=== PATIENT | female | born 1960 | race Caucasian/White ===

== ENCOUNTER 2019-07-28 11:46 | Emergency (ER) | payer BC ==
[2019-07-28] MEDS ORDERED: HYDROCODONE/APAP 10/325 TAB ONE (12:32)
[2019-07-28] MEDS ORDERED: KETOROLAC 30 MG/ML INJ ONE (12:32)
--- NOTE | 2019-07-28 12:45 | ER ---
Nurse's Notes [facility] Name: Jovana Palm Age: 59 yrs Sex: Female : 1960 Arrival Date: 07/28/2019 Time: 11:49 Bed External Waiting Private MD: Diagnosis: Pain in left knee;Other internal derangements of left knee Presentation: 07/28 11:49 Presenting complaint: Patient states: my sciatic nerve starting hurting about a month tw2 ago, i went to [facility] , and they gave me meloxicam and its not helping, now my LEFT knee is hurting but it popped louder than hell when i went to get into the truck just a little bit ago. Transition of care: patient was not received from another setting of care. Onset of symptoms was July 28, 2019. Risk Assessment: Do you want to hurt yourself or someone else? Patient reports no desire to harm self or others. Initial Sepsis Screen: Does the patient meet any 2 criteria? No. Patient's initial sepsis screen is negative. Does the patient have a suspected source of infection? No. Patient's initial sepsis screen is negative. Care prior to arrival: None. 11:49 Method Of Arrival: Wheelchair tw2 11:49 Acuity: SETH 4 tw2 Triage Assessment: 11:51 General: Appears obese, well groomed, Behavior is calm, cooperative, appropriate for tw2 age. Pain: Complains of pain in left knee. Historical: - Allergies: 11:53 No Known Allergies; tw2 - Home Meds: 11:53 Atenolol Oral [Active]; lisinopril oral [Active]; tw2 - PMHx: 11:53 Hypertension; tw2 - Immunization history:: Adult Immunizations. - Social history:: Smoking status: . - Ebola Screening: : Patient denies travel to an Ebola-affected area in the 21 days before illness onset. - Family history:: not pertinent. Screenin:55 Abuse screen: Denies threats or abuse. Nutritional screening: No deficits noted. rb1 Tuberculosis screening: No symptoms or risk factors identified. Fall Risk No fall in past 12 months (0 pts). Secondary diagnosis (15 points) impaired mobility, No IV (0 pts). Ambulatory Aid- None/Bed Rest/Nurse Assist (0 pts). Gait- Impaired (20 pts.). Mental Status- Oriented to own ability (0 pts). Total Dash Fall Scale indicates Low Risk Score (25-44 pts). Fall prevention measures have been instituted. Side Rails Up X 2 Placed close to Nursing Station 1:1 attendant Assigned to Pt. Frequent Obs/Assesments occuring Family Present and informed to notify staff if they need to leave bedside As available Patient and Family Educated on Fall Prevention Program and strategies. Assessment: 11:55 General: Appears uncomfortable, Behavior is calm, cooperative. Pain: Complains of pain rb1 in left knee Pain currently is 9 out of 10 on a pain scale. Neuro: Level of Consciousness is awake, alert, obeys commands, Oriented to person, place, time, situation. Cardiovascular: Capillary refill < 3 seconds is brisk in bilateral fingers. Respiratory: Airway is patent Respiratory effort is even, unlabored, Respiratory pattern is regular, symmetrical. GI: No signs and/or symptoms were reported involving the gastrointestinal system. : No signs and/or symptoms were reported regarding the genitourinary system. Derm: Skin is pink, warm \T\ dry. Musculoskeletal: Reports pain in left knee Her knee popped when she was getting into the vehicle. 12:52 Reassessment: Patient appears in no apparent distress at this time. Patient and/or rb1 family updated on plan of care and expected duration. Pain level reassessed. Patient is alert, oriented x 3, equal unlabored respirations, skin warm/dry/pink. 12:56 Reassessment: Discharge pending, waiting for X-ray to be obtained. rb1 13:22 Reassessment: Patient appears in no apparent distress at this time. Patient and/or rb1 family updated on plan of care and expected duration. Pain level reassessed. Patient is alert, oriented x 3, equal unlabored respirations, skin warm/dry/pink. Patient states feeling better. 13:25 Reassessment: Discharge pending due to Dr. Vegas seeing X-ray results. rb1 Vital Signs: 11:51 BP 131 / 87; Pulse 87; Resp 17; Temp 97.8(TE); Pulse Ox 97% on R/A; Weight 112.04 kg tw2 (R); Height 5 ft. 4 in. (162.56 cm); Pain 9/10; 12:50 BP 129 / 85; Pulse 88; Resp 17; Pulse Ox 99% on R/A; rb1 13:38 BP 133 / 90; Pulse 81; Resp 18; Pulse Ox 100% on R/A; rb1 11:51 Body Mass Index 42.40 (112.04 kg, 162.56 cm) tw2 ED Course: 11:49 Patient arrived in ED. mr 11:51 Triage completed. tw2 11:51 Arm band placed on. tw2 11:55 Patient has correct armband on for positive identification. Bed in low position. Call rb1 light in reach. Side rails up X 1. Pulse ox on. NIBP on. 11:59 Carlos Vegas MD is Attending Physician. [facility] 12:01 Nilda Timmons, MELONIE is Primary Nurse. [facility] 12:45 Parker Swartz MD is Referral Physician. [facility] 13:00 X-ray completed. Portable x-ray completed in exam room. Patient tolerated procedure mh1 well. 13:49 No provider procedures requiring assistance completed. Patient did not have IV access [facility] during this emergency room visit. Administered Medications: 12:33 Drug: TORadol 60 mg Route: IM; Site: left gluteus; rb1 12:44 Follow up: Response: No adverse reaction rb1 12:33 Drug: [place] 10 mg-325 mg 1 tabs Route: PO; rb1 13:00 Follow up: Response: No adverse reaction; Pain is decreased rb1 14:41 Drug: fentaNYL Patch (50 mcg/hr) 1 patches {Note: given per Dr. Vegas as pharmacies ss are closed due to hoiday hours..} Route: Transdermal; Site: anterior chest wall; 14:42 Follow up: Response: Medication administered at discharge. Outcome: 12:45 Discharge ordered by . [facility] 13:49 Patient left the ED. [facility] 13:49 Discharged to home via wheelchair, with crutches, with knee immobilizer rb1 13:49 Condition: stable 13:49 Discharge instructions given to patient, Instructed on discharge instructions, follow up and referral plans. medication usage, Demonstrated understanding of instructions, follow-up care, medications, Prescriptions given X 3. 14:41 Patient left the ED. Signatures: Carlos Vegas MD MD cha Rivera Audrey [place] 1 Nevaeh Gamez RN RN Nilda Timmons, MELONIE RN [facility] Diane, Lety, RN RN tw2
--- NOTE | 2019-07-28 12:45 | EDPHYS ---
Physician Documentation [facility] Name: Jovana Palm Age: 59 yrs Sex: Female : 1960 Arrival Date: 07/28/2019 Time: 11:49 Bed External Waiting Private MD: ED Physician Carlos Vegas HPI: 07/28 12:20 This 59 yrs old Female presents to ER via Wheelchair with complaints of Knee ellen Pain. 12:20 The patient presents with decreased range of motion, pain, tenderness. The complaints ellen affect the left knee. 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 Onset: The symptoms/episode began/occurred today. Modifying factors: The symptoms are alleviated by elevating leg, remaining still, the symptoms are aggravated by nothing. Associated signs and symptoms: The patient has no apparent associated signs or symptoms. Severity of symptoms: At their worst the symptoms were moderate, in the emergency department the symptoms are unchanged. Historical: - Allergies: 11:53 No Known Allergies; tw2 - Home Meds: 11:53 Atenolol Oral [Active]; lisinopril oral [Active]; tw2 - PMHx: 11:53 Hypertension; tw2 - Immunization history:: Adult Immunizations. - Social history:: Smoking status: . - Ebola Screening: : Patient denies travel to an Ebola-affected area in the 21 days before illness onset. - Family history:: not pertinent. ROS: 12:20 Constitutional: Negative for fever, chills, and weight loss, Eyes: Negative for injury, ellen pain, redness, and discharge, ENT: Negative for injury, pain, and discharge, Neck: Negative for injury, pain, and swelling, Cardiovascular: Negative for chest pain, palpitations, and edema, Respiratory: Negative for shortness of breath, cough, wheezing, and pleuritic chest pain, Abdomen/GI: Negative for abdominal pain, nausea, vomiting, diarrhea, and constipation, Back: Negative for injury and pain, : Negative for injury, bleeding, discharge, and swelling, Skin: Negative for injury, rash, and discoloration, Neuro: Negative for headache, weakness, numbness, tingling, and seizure, Psych: Negative for depression, anxiety, suicide ideation, homicidal ideation, and hallucinations, Allergy/Immunology: Negative for hives, rash, and allergies, Endocrine: Negative for neck swelling, polydipsia, polyuria, polyphagia, and marked weight changes, Hematologic/Lymphatic: Negative for swollen nodes, abnormal bleeding, and unusual bruising. 12:20 MS/extremity: Positive for decreased range of motion, pain, tenderness, of the lateral aspect of left calf, posterior aspect of left knee, medial aspect of left knee and left knee. Exam: 12:20 Constitutional: This is a well developed, well nourished patient who is awake, alert, ellen and in no acute distress. Head/Face: Normocephalic, atraumatic. Eyes: Pupils equal round and reactive to light, extra-ocular motions intact. Lids and lashes normal. Conjunctiva and sclera are non-icteric and not injected. Cornea within normal limits. Periorbital areas with no swelling, redness, or edema. ENT: Nares patent. No nasal discharge, no septal abnormalities noted. Tympanic membranes are normal and external auditory canals are clear. Oropharynx with no redness, swelling, or masses, exudates, or evidence of obstruction, uvula midline. Mucous membranes moist. Neck: Trachea midline, no thyromegaly or masses palpated, and no cervical lymphadenopathy. Supple, full range of motion without nuchal rigidity, or vertebral point tenderness. No Meningismus. Chest/axilla: Normal chest wall appearance and motion. Nontender with no deformity. No lesions are appreciated. Cardiovascular: Regular rate and rhythm with a normal S1 and S2. No gallops, murmurs, or rubs. Normal PMI, no JVD. No pulse deficits. Respiratory: Lungs have equal breath sounds bilaterally, clear to auscultation and percussion. No rales, rhonchi or wheezes noted. No increased work of breathing, no retractions or nasal flaring. Abdomen/GI: Soft, non-tender, with normal bowel sounds. No distension or tympany. No guarding or rebound. No evidence of tenderness throughout. Back: No spinal tenderness. No costovertebral tenderness. Full range of motion. Female : Normal external genitalia. Skin: Warm, dry with normal turgor. Normal color with no rashes, no lesions, and no evidence of cellulitis. Neuro: Awake and alert, GCS 15, oriented to person, place, time, and situation. Cranial nerves II-XII grossly intact. Motor strength 5/5 in all extremities. Sensory grossly intact. Cerebellar exam normal. Normal gait. Psych: Awake, alert, with orientation to person, place and time. Behavior, mood, and affect are within normal limits. 12:20 Musculoskeletal/extremity: Extremities: all appear grossly normal, with no appreciated pain with palpation, ROM: full passive range of motion, limited active range of motion, in the left leg, Circulation is intact in all extremities. Sensation intact. Compartment Syndrome exam of affected extremity: is normal. DVT Exam: no swelling, negative Homans' sign noted on exam, no appreciated bluish discoloration, no erythema, no increased warmth, pain, tenderness. Vital Signs: 11:51 BP 131 / 87; Pulse 87; Resp 17; Temp 97.8(TE); Pulse Ox 97% on R/A; Weight 112.04 kg tw2 (R); Height 5 ft. 4 in. (162.56 cm); Pain 9/10; 12:50 BP 129 / 85; Pulse 88; Resp 17; Pulse Ox 99% on R/A; rb1 13:38 BP 133 / 90; Pulse 81; Resp 18; Pulse Ox 100% on R/A; rb1 11:51 Body Mass Index 42.40 (112.04 kg, 162.56 cm) tw2 MDM: 11:59 Patient medically screened. [facility] 12:23 Data reviewed: vital signs, nurses notes, radiologic studies, plain films. [facility] 07/28 12:19 Order name: Knee Left 3 View XRAY [facility] 07/28 13:20 Order name: RAD EDRI 07/28 12:19 Order name: Knee Immobilizer; Complete Time: 13:03 [facility] 07/28 12:19 Order name: Ice pack; Complete Time: 12:40 [facility] 07/28 13:48 Order name: Crutches; Complete Time: 13:48 rb1 Administered Medications: 12:33 Drug: TORadol 60 mg Route: IM; Site: left gluteus; rb1 12:44 Follow up: Response: No adverse reaction rb1 12:33 Drug: [place] 10 mg-325 mg 1 tabs Route: PO; rb1 13:00 Follow up: Response: No adverse reaction; Pain is decreased rb1 14:41 Drug: fentaNYL Patch (50 mcg/hr) 1 patches {Note: given per Dr. Vegas as pharmacies ss are closed due to hoiday hours..} Route: Transdermal; Site: anterior chest wall; 14:42 Follow up: Response: Medication administered at discharge. Disposition: 07/28/19 12:45 Discharged to Home. Impression: Pain in left knee, Other internal derangements of left knee. - Condition is Stable. - Discharge Instructions: Joint Pain, Arthritis, How to Use a Knee Brace, Musculoskeletal Pain, Knee Pain, Knee Pain, [id number], Joint Pain, [id number]. - Prescriptions for Tylenol- Codeine #3 300-30 mg Oral Tablet - take 2 tablet by ORAL route every 6 hours As needed; 30 tablet. Diclofenac Sodium 75 mg Oral Tablet Sustained Release - take 1 tablet by ORAL route 2 times per day; 30 tablet. Medrol (Héctor) 4 mg Oral Tablets, Dose Pack - take 1 tablet by ORAL route as directed - follow package instructions; 1 packet. - Medication Reconciliation Form, Thank You Letter, Antibiotic Education, Prescription Opioid Use form. - Follow up: Private Physician; When: 2 - 3 days; Reason: Recheck today's complaints, Continuance of care, Re-evaluation by your physician. Follow up: Parker Swartz; When: 2 - 3 days; Reason: Recheck today's complaints, Continuance of care, Re-evaluation by your physician. - Problem is new. - Symptoms have improved. Signatures: Dispatcher [employer] EDMS Carlos Vegas MD MD cha Smirch, Shelby RN RN Nilda Timmons, RN RN rb1 Lety Diane RN RN tw2 Corrections: (The following items were deleted from the chart) 13:49 12:45 07/28/2019 12:45 Discharged to Home. Impression: Pain in left knee; Other rb1 internal derangements of left knee. Condition is Stable. Discharge Instructions: Joint Pain, Arthritis, How to Use a Knee Brace, Musculoskeletal Pain, Knee Pain, Knee Pain, [id number], Joint Pain, [id number]. Prescriptions for Tylenol-Codeine #3 300-30 mg Oral Tablet - take 2 tablet by ORAL route every 6 hours As needed; 30 tablet, Diclofenac Sodium 75 mg Oral Tablet Sustained Release - take 1 tablet by ORAL route 2 times per day; 30 tablet. and Forms are Medication Reconciliation Form, Thank You Letter, Antibiotic Education, Prescription Opioid Use. Follow up: Private Physician; When: 2 - 3 days; Reason: Recheck today's complaints, Continuance of care, Re-evaluation by your physician. Follow up: Parker Swartz; When: 2 - 3 days; Reason: Recheck today's complaints, Continuance of care, Re-evaluation by your physician. Problem is new. Symptoms have improved. ellen 14:41 13:49 07/28/2019 12:45 Discharged to Home. Impression: Pain in left knee; Other ss internal derangements of left knee. Condition is Stable. Discharge Instructions: Joint Pain, Arthritis, How to Use a Knee Brace, Musculoskeletal Pain, Knee Pain, Knee Pain, Vuln-it-Wksi, Joint Pain, [id number]. Prescriptions for Tylenol-Codeine #3 300-30 mg Oral Tablet - take 2 tablet by ORAL route every 6 hours As needed; 30 tablet, Diclofenac Sodium 75 mg Oral Tablet Sustained Release - take 1 tablet by ORAL route 2 times per day; 30 tablet, Medrol (Héctor) 4 mg Oral Tablets, Dose Pack - take 1 tablet by ORAL route as directed - follow package instructions; 1 packet. and Forms are Medication Reconciliation Form, Thank You Letter, Antibiotic Education, Prescription Opioid Use. Follow up: Private Physician; When: 2 - 3 days; Reason: Recheck today's complaints, Continuance of care, Re-evaluation by your physician. Follow up: Parker Swartz; When: 2 - 3 days; Reason: Recheck today's complaints, Continuance of care, Re-evaluation by your physician. Problem is new. Symptoms have improved. rb1
--- NOTE | 2019-07-28 13:19 | RAD REPORT ---
EXAM DESCRIPTION: RAD - Knee Left 3 View - 07/28/2019 1:03 pm CLINICAL HISTORY: Left knee pain FINDINGS: No fracture or dislocation is seen.
[2019-07-28 13:55] VITALS: TEMP 97.8
[2019-07-28] MEDS ORDERED: FENTANYL 50 MCG/PATCH TD ONE (14:42)
[2019-07-28 15:10] VITALS: BP 133/90; O2SAT 100
== END 2019-07-28 14:41 | disposition home or self-care (01) ==
LOC: ER 11:46
DX: M23.8X2 Other internal derangements of left knee (principal); X58.XXXA Exposure to other specified factors, initial encounter; Y93.9 Activity, unspecified; Y92.89 Other specified places as the place of occurrence of the external cause; Y99.8 Other external cause status; I10 Essential (primary) hypertension
CPT/HCPCS: 96372; 99283